=== PATIENT | male | born 1960 | race Caucasian/White ===

== ENCOUNTER 2016-05-19 06:10 | Day surgery (SDC) | payer BC, MEDICARE ==
[~2016-05-19] VITALS: Ht 175.3 cm; Wt 77.1 kg
[~2016-05-19 06:10] MED LIST: ALBU2.5V13 NEB; AMLO10TA2 PO; ASPI81TA2 PO; ATOR20TA58 PO; CEFAZOLIN 2GM PREMIX 50 ML IV PRN; CHOL100013 PO; CLOP75TA PO; ESCI10TA PO; ESOM40CA PO; METF10002 PO; POTA10TA PO; PROAIR HFA8.5 GM INH; SITA100T PO; TIOT18CA IH; VALS1TAB22 PO; VARE1TAB21 PO
[2016-05-19] MEDS ORDERED: LIDOCAINE 1% 1 ML SYRINGE. ID PRN (07:00)
[2016-05-19] MEDS ORDERED: FENTANYL PF 100 MCG/2 ML VIAL. IV PRN (07:00)
[2016-05-19] MEDS ORDERED: HYDROMORPHONE 2 MG/ML VIAL. IV PRN (07:00)
[2016-05-19] MEDS ORDERED: MORPHINE SULFATE 2 MG/ML DISP.SYRIN. IV PRN (07:00)
[2016-05-19] MEDS ORDERED: IV RINGERS,LACTATED 1000ML 1,000 ML IV SCH ×2 (07:00→08:00)
[2016-05-19] MEDS ORDERED: ONDANSETRON PF 4 MG/2 ML VIAL. IV PRN (07:00)
[2016-05-19] MEDS ORDERED: PROCHLORPERAZINE 10 MG/2 ML VIAL. IV PRN (07:00)
[2016-05-19] MEDS ORDERED: GLUCAGON,HUMAN RECOMBINANT 1 MG/ML VIAL. ONE (07:19)
[2016-05-19] MEDS ORDERED: IOHEXOL 300 MG/ML 50 ML VIAL. ONE (07:19)
[2016-05-19] MEDS ORDERED: BUPIVAC MPF-EPI 0.5%-1:200000 30 ML VIAL. ONE (07:19)
[2016-05-19] MEDS ORDERED: SURGICEL HEMOSTAT 4X8 EACH. ONE (07:19)
[2016-05-19] MEDS ORDERED: ONDANSETRON PF 4 MG/2 ML VIAL. ONE (07:23)
[2016-05-19] MEDS ORDERED: MIDAZOLAM HCL 2 MG/2 ML VIAL. ONE (07:23)
[2016-05-19] MEDS ORDERED: FENTANYL PF 100 MCG/2 ML VIAL. ONE ×2 (07:23→08:44)
[2016-05-19] MEDS ORDERED: PROPOFOL 20 ML IV ONE (07:23)
[2016-05-19] MEDS ORDERED: ROCURONIUM 50 MG/5 ML VIAL. ONE (07:23)
[2016-05-19] MEDS ORDERED: DEXAMETHASONE SOD PHOS 20 MG/5 ML VIAL. ONE (07:23)
[2016-05-19] MEDS ORDERED: LIDOCAINE 2% 100 MG/5 ML DISP.SYRIN. ONE (07:23)
[2016-05-19] MEDS ORDERED: GLYCOPYRROLATE 1 MG/5 ML VIAL. ONE (08:21)
[2016-05-19] MEDS ORDERED: NEOSTIGMINE METHYLSULFATE 5 MG/5 ML SYRINGE. ONE (08:21)
[2016-05-19] MEDS ORDERED: PHENYLEPHRINE in 0.9% NACL PF 1 MG/10 ML DISP.SYRIN. IV ONE (08:21)
[2016-05-19] MEDS ORDERED: EPHEDRINE PF IN SALINE 50 MG/5 ML DISP.SYRIN. IV ONE (08:27)
--- NOTE | 2016-05-19 08:34 | RAD ---
Intraoperative cholangiogram, 05/19/2016: History: Cholecystectomy 3 spot films from surgery are presented for review. Contrast has been injected into the cystic duct remnant. 9 seconds of fluoroscopy time was utilized. There is good flow of contrast into the duodenum at the ampulla. No filling defect is seen in the common duct to suggest a retained calculus. The visualized intrahepatic ducts are unremarkable. No contrast extravasation is evident. Gallstones are identified in the gallbladder fossa. IMPRESSION: No significant abnormality is detected.
[2016-05-19] MEDS ORDERED: KETOROLAC 60 MG/2 ML SYRINGE FOR OR. ONE (08:37)
[2016-05-19] MEDS ORDERED: DESFLURANE 61 TO 120 MINUTES IH ONE (08:38)
--- NOTE | 2016-05-19 08:54 | DISCH ---
DISCHARGE INSTRUCTIONS Condition on Discharge Condition on Discharge: Stable Activity After Discharge Activity Instructions for Disc: Activity as tolerated, Avoid exertion Driving Instructions after Dis: Do not drive (3-4 days) Diet after Discharge Diet after Discharge: Regular Wound Incision Care Other wound/incision instructi: august showthursday Follow-Up Follow up with: Temo next week HOSSEIN VILLARREAL MD May 19, 2016 08:54
--- NOTE | 2016-05-19 08:57 | PDOC ---
BRIEF OPERATIVE NOTE Date: May 19, 2016 Pre-Op Diagnosis symptomatic cholelithiasis Post-Op Diagnosis same Procedure Performed l/s cholecystectomy with cholangiograms Surgeon Temo Anesthesia Type: General Blood Loss 10cc IV Fluid 800cc Specimens Obtained GB Findings rounded liver, supple GB, normal grams Complications none Additional Remarks Wk # [id number] HOSSEIN VILLARREAL MD May 19, 2016 08:57
[2016-05-19] MEDS ORDERED: OXYC-323 PO (09:10)
[2016-05-19] MEDS ORDERED: SENN1TAB70 PO (09:10)
[2016-05-19] MEDS ORDERED: OXYCODONE/APAP 5/325 TABLET. ONE (09:23)
[2016-05-19] MEDS ORDERED: OXYCODONE/APAP 5/325 TABLET. PO ONE (09:30)
[2016-05-19] MEDS: FENTANYL PF 100 MCG/2 ML VIAL. IV PRN ×2 (09:48→09:54)
[2016-05-19 10:54] VITALS: BP 118/7
--- NOTE | 2016-05-19 11:05 | OP ---
DATE OF SURGERY: 05/19/2016 PREOPERATIVE DIAGNOSIS: Symptomatic cholelithiasis. POSTOPERATIVE DIAGNOSIS: Symptomatic cholelithiasis. PROCEDURE: Laparoscopic cholecystectomy with cholangiogram. SURGEON: Hossein Villarreal MD. ANESTHESIA: General endotracheal. ESTIMATED BLOOD LOSS: 10 mL. IV FLUID: 800. INDICATIONS: The patient is a 55-year-old with postprandial epigastric and right upper quadrant pain. Ultrasound shows stones. He is brought for cholecystectomy. OPERATIVE FINDINGS: The liver was rounded and fatty ____ placed without obvious nodule. Gallbladder was supple with stones. Cholangiograms were normal. Visual inspection of the remainder of the abdomen failed to reveal obvious abnormalities. DESCRIPTION OF PROCEDURE: The patient was brought to the operating suite, given general endotracheal anesthetic and the abdomen prepped and draped in usual sterile fashion. A supraumbilical incision was infiltrated with local anesthetic, sharply incised and a 5 mm Visiport used to gain access into the abdominal cavity. Care was taken to avoid injury to abdominal contents. Pneumoperitoneum was established. Camera inserted and inspection carried out with results as noted above. With the table in reverse Trendelenburg rolled to the left, the epigastric and midclavicular ports were placed under direct vision. A lateral port location was used for an "alligator" grasper after placement local anesthetic. The gallbladder was then retracted superolaterally and the cystic duct and cystic artery were carefully exposed. The cystic duct was clipped on the gallbladder side. Cholangiograms were made. These were normal. In light of this, the catheter was removed. The cystic duct was clipped x 3 and divided, taking care to avoid injury or compromise of the common duct. The cystic artery was isolated, clipped and divided and gallbladder freed from the bed with cautery dissection. ____ up the fossa a posterior vessel was encountered, clipped, and divided. Gallbladder was then freed from the bed and placed in an EndoCatch bag. Good hemostasis was present. Table returned to level. Gallbladder delivered through the epigastric incision. Epigastric incision closed with interrupted 0 Vicryl suture. Intra-abdominal pressure decreased to 6 cm of water. No bleeding from the epigastric closure or from the midclavicular port site after its removal or from the previously removed "alligator" grasper site. Abdomen decompressed, camera slowly removed, no bleeding seen. Skin incisions closed with subcuticular 4-0 Monocryl. Steri-Strips and sterile dressings applied. The patient was awakened from his anesthetic and taken to the recovery room in satisfactory condition. HOSSEIN VILLARREAL MD DR: BETZAIDA/eliu JOB#: [id number] / [id number]
--- NOTE | 2016-05-20 16:32 | PATHOLOGY ---
PATHOLOGY REPORT * * * * * * * * FINAL DIAGNOSIS: Gallbladder, laparoscopic cholecystectomy: - Cholelithiasis. - Chronic cholecystitis. COMMENT: There is no evidence of malignancy. (LORYM:miki; d/t: 05/20/2016) REPORT ELECTRONICALLY SIGNED BY: Rinku Slade M.D. DATE/TIME: 05/20/2016 16:31 * * * * * * * * GROSS PATHOLOGY: Received in formalin labeled "Franky Heck Sr-gallbladder and its contents," is a 9.3 x 3.7 x 3.3 cm, intact gallbladder with pink-parr, well vascularized, and wrinkled serosal surfaces. Opening the gallbladder reveals light green and granular mucosa and an average wall thickness of 0.1 cm. Several dark green and multifaceted calculi ranging from 1.0-1.3 cm in greatest dimension are present and no masses are noted grossly. There is a possible pink-parr lymph node present near the cystic duct. [employer] sections from the body and fundus are submitted along with the proximal margin and lymph node in cassette A1. (TTL:LIBERTY:miki; 05/19/2016) INITIAL CPT CODE(S): A; 31438 Professional services [place] [address] Technical services performed by [facility] at [address] [place] [address], [facility] [address] [address]. SPECIMEN(S) RECEIVED: A.Gallbladder and its contents CLINICAL HISTORY: Symptomatic cholelithiasis PATIENT: FRANKY HECK SR /AGE: 509/11/1960 (Age: 55) PATIENT #: [id number] ALT CASE #: SPECIMEN COLLECTION DATE: 05/19/2016 SPECIMEN RECEIVED DATE: 05/19/2016 [facility] - [address] [place] [address] - PHONE: [phone] * * * END OF REPORT * * *
== END 2016-05-19 11:35 | disposition home or self-care (01) ==
LOC: SURG 06:10
PROVIDERS: ATTEND Surgery
DX: K80.20 Calculus of gallbladder without cholecystitis without obstruction (principal); I10 Essential (primary) hypertension; E78.00 Pure hypercholesterolemia, unspecified; J44.9 Chronic obstructive pulmonary disease, unspecified; J45.909 Unspecified asthma, uncomplicated; K21.9 Gastro-esophageal reflux disease without esophagitis; F32.9 Major depressive disorder, single episode, unspecified; F17.200 Nicotine dependence, unspecified, uncomplicated
CPT/HCPCS: 47563; 74300; 82947; 88304; C1769; C1782; J0690; J1100; J1885; J2250; J2370; J2405; J2704; J2710; J3010; J3490; J7030; Q9967; J1610

== ENCOUNTER → 2017-10-16 | Outpatient (CLI) | payer BC, MEDICARE | END | disposition home or self-care (01) | LOC: RT 08:54 | DX: G25.89 Other specified extrapyramidal and movement disorders (principal); I10 Essential (primary) hypertension; E78.00 Pure hypercholesterolemia, unspecified; J44.9 Chronic obstructive pulmonary disease, unspecified; K21.9 Gastro-esophageal reflux disease without esophagitis; Z87.891 Personal history of nicotine dependence | CPT/HCPCS: 95816 ==

== ENCOUNTER → 2017-11-13 | Outpatient (CLI) | payer BC, MEDICARE ==
[2017-11-13] MEDS: GADOBUTROL 7.5 MMOL/7.5 ML VIAL IV (10:12)
== END | disposition home or self-care (01) ==
LOC: MRI 08:55
DX: G93.89 Other specified disorders of brain (principal); G25.2 Other specified forms of tremor; I10 Essential (primary) hypertension; E78.00 Pure hypercholesterolemia, unspecified; J44.9 Chronic obstructive pulmonary disease, unspecified; K21.9 Gastro-esophageal reflux disease without esophagitis; F32.9 Major depressive disorder, single episode, unspecified; R56.9 Unspecified convulsions
CPT/HCPCS: 70553; A9585

== ENCOUNTER → 2018-02-01 | Outpatient (CLI) | payer BC, MEDICARE ==
[~2018-02-01] MED LIST changes: -ALBU2.5V13 NEB; +ALBU2.5V14 NEB; -AMLO10TA2 PO; +AMLO10TA6 PO; +ASPI-630 PO; -ASPI81TA2 PO; -CEFAZOLIN 2GM PREMIX 50 ML IV PRN; -ESCI10TA PO; +ESCITALOPRAM OX10 MG PO; -METF10002 PO; +METF10007 PO; +OXYC-323 PO; +SENN1TAB70 PO
--- NOTE | 2018-02-11 18:23 | EEG ---
DATE OF SERVICE: 02/01/2018 EEG DATE: 02/01/2018 to 02/02/2018. EEG NUMBER: [id number]. OBJECTIVE: This is a 57-year-old male patient with history of abnormal movements, seizure or seizure-like episodes. EEG was requested to evaluate seizure activity. METHODS: Twenty electrodes were applied according to the international 10-20 electrode placement system. EKG monitoring, hyperventilation, intermittent photic stimulation, monopolar and bipolar montages are routinely utilized. The record was obtained on a digital system with video monitoring. This is a long-term video EEG monitoring with total video monitoring and EEG recording time of 25 hours and 24 minutes from 02/01/2018 to 02/02/2018. FINDINGS: 1. Background: The patient was recorded in the awake, drowsy, and sleep states. The overall background amplitude is 5-10 microvolts. A posterior dominant rhythm of 8-9 Hz is observed. 2. Abnormalities: No specific epileptiform discharge or electrographic seizure is seen. No focal or diffuse slowing. 3. Activation: Hyperventilation was performed with good efforts and normal response. Intermittent photic stimulation was performed with photic driving. Photoparoxysmal phenomenon noted. No specific epileptiform discharge or electrographic seizure induced by hyperventilation or intermittent photic stimulation. IMPRESSION: This is a long-term video EEG study with total video monitoring and EEG recording time of 25 hours and 24 minutes from 02/01/2018 to 02/02/2018. This long-term video EEG study is a normal study for the awake, drowsy, and sleep states. No focal, lateralizing, specific epileptiform discharge or electrographic seizure is seen. ZULY GAMEZ MD DR: KATHY/eliu JOB#: [id number] / [id number] GAEL
== END | disposition home or self-care (01) ==
LOC: SLPLAB 05:43
PROVIDERS: ATTEND Psychiatry & Neurology Neurology
DX: G25.89 Other specified extrapyramidal and movement disorders (principal)
CPT/HCPCS: 95951

== ENCOUNTER → 2020-05-07 | Outpatient (CLI) | payer MEDICARE, OTHER ==
[~2020-05-07] MED LIST changes: +ALBU2.5V8 INH; +AMLO-187 PO; -AMLO10TA6 PO; +CONTRAST GIVEN. MC PRN; +IOHEXOL 300 MG/ML 100ML VIAL. IV ONE; -OXYC-323 PO; +OXYC1TAB15 PO; -PROAIR HFA8.5 GM INH; -VALS1TAB22 PO; +VALS1TAB23 PO
--- NOTE | 2020-05-07 09:47 | KCIC ---
EXAM: Abdomen and pelvis CT with intravenous contrast. HISTORY: Renal cyst. TECHNIQUE: Computed tomographic images of the abdomen and pelvis were obtained following the administ ration of intravenous contrast. Multiplanar reformatting was performed. *One or more of the following individualized dose reduction techniques were utilized for this examina tion: 1. Automated exposure control. 2. Adjustment of the mA and/or kV according to patient size. 3. Use of iterative reconstruction technique. COMPARISON: 03/05/2016. FINDINGS: Evaluation of the lower thorax demonstrates no infiltrate or pleural effusion. There is a c alcified granuloma within the left lower lobe. There is lingular atelectasis or scarring. There are 1.0 cm and 1.6 cm ill-defined hypodense lesions within the posterior right hepatic lobe. Th e gallbladder is surgically absent. The stomach, pancreas and adrenal glands are unremarkable. There are splenules adjacent to an upper normal sized spleen. There is a 1.5 cm exophytic lesion along the upper pole of the left kidney, the attenuation of which is greater than fluid. There is a 1.5 cm simple cyst within the lateral upper mid zone of the right k idney. There is pleural renal cortical lobulation and renal cortical thinning. There is no hydronephr osis. The appendix is prominent in caliber. However, there is no surrounding stranding to suggest appendici tis. This is likely physiologic. There is no bowel obstruction or abnormal bowel wall thickening. The re is prostatomegaly. The aorta is normal in caliber. There are nonspecific lymph nodes throughout th e root of mesentery and retroperitoneum. These are not pathologically enlarged. There are degenerativ e changes throughout the spine. There is no suspicious osseous lesion. IMPRESSION: 1. 1.5 cm exophytic lesion along the upper pole the left kidney, the attenuation of which is greater than fluid. This is increased compared to a CT performed 03/05/2016. This may be a complicated cyst o r solid lesion. Renal sonography may be useful for characterization. There is also a 1.[address] within the right kidney. 2. 1.0 cm and 1.6 cm ill-defined hypodense lesions within the right hepatic lobe. There is no correla te for this finding on prior studies, possibly due to the absence of contrast on prior studies. These lesions are indeterminant and can be further characterized with a liver protocol MRI. 3. Prostatomegaly. Electronically signed by: Leeann Sherman MD (05/07/2020 9:45 AM) [id number]
== END ==
LOC: KCIC CT 08:33
PROVIDERS: ATTEND Family Medicine
DX: N28.1 Cyst of kidney, acquired (principal); N40.0 Benign prostatic hyperplasia without lower urinary tract symptoms; K76.9 Liver disease, unspecified
CPT/HCPCS: 74177; 82565; Q9967

== ENCOUNTER → 2020-05-17 | Outpatient (CLI) | payer MEDICARE, OTHER ==
[~2020-05-17] MED LIST changes: -CONTRAST GIVEN. MC PRN; +GADOTERATE 7.5 MMOL/15ML VIAL. IVP ONE; -IOHEXOL 300 MG/ML 100ML VIAL. IV ONE
--- NOTE | 2020-05-17 11:41 | KCIC ---
EXAM: MRI ABDOMEN WITH AND WITHOUT CONTRAST. HISTORY: Indeterminate hepatic and renal lesions. TECHNIQUE: MRI of the abdomen was performed before and after the intravenous administration of gadoli nium contrast. COMPARISON: 05/07/2020. FINDINGS: Kidneys: The 1.5 cm exophytic lesion of concern at the left renal upper pole is very T1 precontrast h yperintense and T2 intermediate. Postcontrast, there is no definitive enhancement, measuring 250 prec ontrast and 254 postcontrast. There is thin rim enhancement along its periphery without nodularity. S mall nonenhancing simple cysts in the right kidney measure up to 14 mm. Liver: Hepatic parenchymal signal loss on opposed phase images indicates mild diffuse hepatic steatos is. 2 T2 hyperintense lesions within hepatic segments 7 measure 9 mm and 6 mm, respectively. Both dem onstrate progressive peripheral nodular enhancement consistent with benign hemangiomas. There are no suspicious hepatic lesions. Biliary tree: The gallbladder is surgically absent. The common duct is not dilated. There are no susp icious pancreatic parenchymal lesions. The pancreatic duct is not dilated. Other findings: The adrenal glands and spleen are unremarkable. IMPRESSION: 1. 2 subcentimeter benign hemangiomas corresponding with the site of concern in the right hepatic lob e. No suspicious hepatic lesions. Trace diffuse hepatic steatosis. 2. 1.5 cm exophytic lesion at the left renal upper pole consistent with a proteinaceous/hemorrhagic c yst. No clearly suspicious renal lesions. Sonographic follow-up could be performed in one year if the re is persistent concern. Electronically signed by: Kristi Crowder MD (05/17/2020 11:39 AM) [id number]
== END ==
LOC: KCIC MRI 08:29
PROVIDERS: ATTEND Family Medicine
DX: K76.9 Liver disease, unspecified (principal); D18.09 Hemangioma of other sites
CPT/HCPCS: 74183; A9575